=== PATIENT | female | born 1995 | race African-American/Black ===

== ENCOUNTER 2020-06-27 02:57 | Emergency (ER) | payer SELFPAY ==
[~2020-06-27] VITALS: Ht 190.5 cm; Wt 80.0 kg
[2020-06-27] MEDS ORDERED: LORAZEPAM 2MG/ML CPJ IM ONE (05:00)
[2020-06-27] MEDS ORDERED: HALOPERIDOL LACTATE 5MG/ML VIAL IM ONE (05:00)
[2020-06-27 06:29] LABS: BASOPHILS % 0.6 % (0.0-2.0); HEMOGLOBIN. 11.7 g/dL (12.0-16.0); LYMPHOCYTES % 21.7 % (20.0-50.0); MEAN CORPUSCULAR HEMOGLOBIN 22.5 pg (28.0-32.0); MEAN CORPUSCULAR VOLUME 71.2 fL (81.0-99.0); MEAN PLATELET VOLUME 8.4 fl (7.4-10.4); MONOCYTES % 4.1 % (2.0-8.0); NEUTROPHILS % 73.6 % (40.0-76.0); PLATELET 179 x1000/uL (130-400); RED CELL DISTRIBUTION WIDTH 14.8 % (11.6-14.6)
[2020-06-27 06:35] LABS: CHLORIDE 109 mEq/L (98-107)
[2020-06-27 06:39] LABS: ETHANOL BLOOD < 10 mg/dL
[2020-06-27 07:05] LABS: CLARITY URINE CLOUDY (CLEAR); COLOR URINE YELLOW (YELLOW); KETONES URINE NEGATIVE (NEGATIVE); LEUKOCYTE ESTERASE URINE TRACE (NEGATIVE); NITRITE URINE NEGATIVE (NEGATIVE); OCCULT BLOOD URINE 2+ (NEGATIVE); PH URINE 5.5 (4.5-8.0); PROTEIN URINE NEGATIVE (NEGATIVE); SPECIFIC GRAVITY URINE 1.015 (1.005-1.030); UROBILINOGEN URINE 0.2 E.U./dL (0.2-1.0)
[2020-06-27 07:28] LABS: *AMPHETAMINES SCREEN URINE NEGATIVE (NEGATIVE); *BARBITURATES SCREEN URINE NEGATIVE (NEGATIVE); *BENZODIAZEPINES SCREEN URINE NEGATIVE (NEGATIVE); *COCAINE SCREEN URINE NEGATIVE (NEGATIVE); METHADONE URINE SCREEN NEGATIVE (NEGATIVE)
[2020-06-27 07:29] LABS: CANNABINOID URINE SCREEN NEGATIVE (NEGATIVE); OPIATES URINE SCREEN NEGATIVE (NEGATIVE); PHENCYCLIDINE URINE SCREEN NEGATIVE (NEGATIVE)
[2020-06-27 07:47] LABS: HCG SCREEN NEGATIVE
[2020-06-27 18:00] VITALS: BP 116/93
== END 2020-06-27 18:15 | disposition home or self-care (01) ==
LOC: ER 06:25
DX: F23 Brief psychotic disorder (principal)
CPT/HCPCS: 36415; 80053; 80305; 80320; 81003; 84703; 85025; 93005; 96372; 99285; J1630; J2060; G0480